=== PATIENT | male | born 1975 ===

== ENCOUNTER 2025-04-23 08:39 | Outpatient (AMB) | payer MEDICARE, MEDICAID, SELFPAY ==
--- NOTE | 2025-04-23 08:42 | A.OFFVIS_ITS ---
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 Patient referred by DELMER Armstrong at [facility]. Patient had a cervical spine x ray done 03/01. He was sent to physical therapy for neck, right shoulder and back pain. 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 Patient states he fell down the stairs at home multiple times. Patient reports that his right shoulder and lower back are in constant pain. Portfolio Consultant Required: Yes Portfolio Consultant Services: Portfolio Consultant Present Portfolio Consultant Name: Yocasta Chen [phone] Allergies No Known Allergies Allergy (Verified 04/23/25 09:17) HPI Comments Details: Referred from [facility]. Chronic neck pain, right shoulder pain, low back pain. Previously seen by Orthopedics and physiatry (Dr. Duke). Cervical spine x-ray 02/2025 showed decreased disc height C4-5 and C5-6. Shoulder x-ray 08/2019 showed postsurgical changes, soft tissue calcification lateral to right humeral head raising differential of posttraumatic calcification versus calcific tendinopathy. Lumbar x-ray 02/2025 showed decreased disc height L4-5 and L5-S1. Mild neural foraminal stenosis at multiple levels. Lumbar x-ray 09/2023 showed multilevel bony and disc degenerative changes with some interval progression since previous examination. MRI lumbar spine 10/2023 showed multilevel bony and disc degenerative changes without significant interval change since previous examination. He follows with Psychiatry for anxiety and depression, prescribed by them with gabapentin. History of hypertension hyperlipidemia. He was recently referred to PT by his PCP. 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 The lower back pain is the worst for him and which we will concentrate on for today. It is across the back and then goes both sides and says both sciatic nerves are hurting him. Goes down the right leg only. Numbness on right side only. He admits that injection in the past did not help more than a few months. He has started PT, had 2 sessions per week, for past 2 weeks. Has 2-3 sessions left. Not much help so far. [facility] Medical History (Updated 04/23/25 @ 09:21 by Orin Casey MD) Chronic low back pain Lumbar radiculitis Review of Systems Const All systems reviewed & are unremarkable except as noted in HPI and below Physical Exam Vital Signs: BMI result Body Mass Index 35.5 Constitutional: Patient appears to be in no acute distress, well nourished and well developed. Patient was appropriately conversant and oriented. Good historian. MSK: No specific abnormalities found on inspection of the spine and all extremities. No pain with palpation over the lumbar area. Lumbar ROM was full. Bilateral hip, knee and ankle ROM WNL. No ligamentous laxity or crepitance. No increased effusion. Straight-leg raising test positive right. FABERE test positive right. SI joints nontender. Strength is 5/5 in all muscle groups tested. No increased tone noted. Neurological: Neurologic examination of the upper and lower extremities was nonfocal with intact sensation, muscle stretch reflexes and without focal motor deficits . Joseph?s negative bilaterally. Babinski was down going bilaterally. Clonus was negative. Gait is antalgic without loss of balance. Results Reviewed Results Reviewed: I reviewed records from the following: [facility] Assessment & Plan Assessment & Plan (1) Lumbar radiculitis: Code(s): M54.16 - Radiculopathy, lumbar region Category: Medical (2) Chronic low back pain: Code(s): M54.50 - Low back pain, unspecified; G89.29 - Other chronic pain Category: Medical Qualifiers: Back pain laterality: right Sciatica presence: with sciatica Sciatica laterality: sciatica of right side Qualified Code(s): M54.41 - Lumbago with sciatica, right side; G89.29 - Other chronic pain Plan Chronic lower back pain, presenting as lumbar radiculitis. Possible right L5-S1 or L4-5 disc herniation. Patient had undergone adequate conservative management including PT without improvement of condition. It would be reasonable to obtain further imaging such as MRI. An MRI would help rule out any serious condition, guide treatment and assess prognosis for recovery. Specifically ruling out right L4-5 or L5-S1 disc herniation. Depending on results, we may refer him to Neurosurgery or further injections. Assessment and plan discussed with patient, and patient was agreeable. All questions were answered thoroughly. Follow up after MRI. Orin Casey MD, CARLEY Board Certified, [place] [employer] and Rehabilitation (ABPMR) Board Certified, [place] [employer] Electrodiagnostic [employer] (ABEM) Orders: Orders MR lumbar spine wo con Today G89.29 - Other chronic pain, M54.16 - Radiculopathy, lumbar region, M54.50 - Low back pain, unspecified Coding Level of Care Code New Pt Level 4 (09131) Diagnoses Lumbar radiculitis M54.16 Chronic right-sided low back pain with right-sided sciatica M54.41; G89.29 Back pain laterality: right Sciatica presence: with sciatica Sciatica laterality: sciatica of right side
[2025-04-23 08:44] VITALS: BMI 35.5
== END 2025-04-23 09:20 | disposition home or self-care (01) ==
LOC: HO.HOS 08:40
PROVIDERS: PCP Family Medicine; Visit Provider Physical Medicine & Rehabilitation
DX: M54.16 Radiculopathy, lumbar region (principal); M54.41 Lumbago with sciatica, right side; G89.29 Other chronic pain
CPT/HCPCS: 99204

== ENCOUNTER → 2025-04-23 08:39 | Outpatient (BNVA) | payer MEDICARE, MEDICAID, SELFPAY | PROVIDERS: PCP Family Medicine; Visit Provider Physical Medicine & Rehabilitation | DX: M54.16 Radiculopathy, lumbar region (principal); M54.41 Lumbago with sciatica, right side; G89.29 Other chronic pain | CPT/HCPCS: 99202 ==

== ENCOUNTER → 2025-05-06 10:50 | Outpatient (BNV) | payer MEDICARE, MEDICAID, SELFPAY | PROVIDERS: PCP Family Medicine; Visit Provider Radiology Diagnostic Radiology | DX: M51.26 Other intervertebral disc displacement, lumbar region (principal) | CPT/HCPCS: 72148 ==

== ENCOUNTER 2025-05-06 11:01 | Outpatient (REF) | payer MEDICARE, MEDICAID, SELFPAY ==
--- NOTE | ~2025-05-06 | MR_ITS ---
EXAM: MRI Lumbar Spine without Contrast. TECHNIQUE: Multiplanar multisequence MR imaging was performed through the lumbar spine without contrast. INDICATION: Low back pain, greater on the right, leg weakness, leg numbness, gets off balance , since 2014, history of childhood trauma PRIOR: None FINDINGS: 5 non-rib bearing lumbar segments are assumed for numbering purposes. If level specific intervention is planned, correlate with an x-ray to ensure concordant numbering. Marrow and end-plates: There are no marrow replacing lesions. Modic 2 change is present at posterior L4-5. Alignment: L4-5 demonstrates mild grade 1 retrolisthesis. Soft tissues: Paraspinal soft tissues and major vascular structures are unremarkable. Conus: The termination of conus medullaris is within normal limits at the level of L1-2. T12-L1: There is no disc bulge, herniation, spinal stenosis, or foraminal narrowing. L1-L2: There is mild loss of disc height and circumferential broad-based disc bulge resulting in spinal stenosis or foraminal narrowing. L2-L3: There is no disc bulge, herniation, spinal stenosis, or foraminal narrowing. L3-L4: There is minimal foraminal disc bulge without spinal stenosis or foraminal narrowing. Mild broad-based disc bulge and mild facet hypertrophy does not result in spinal stenosis. There is mild bilateral foraminal narrowing. L4-L5: There is mild loss of disc height and endplate osteophytes. There is moderate facet degeneration with hypertrophic changes and osteophytes, right greater than left. There is no spinal stenosis. There is minimal subarticular zone narrowing, more on the left. There is mild bilateral foraminal narrowing, greater on the left. Disc and osteophytes contact the L4 nerve roots in the far lateral zone, left greater than right. L5-S1: There is broad-based disc bulge and small broad central and foraminal extrusion. There is moderate facet degeneration, right greater than left. There is no spinal stenosis or subarticular zone narrowing. Mild to moderate foraminal narrowing is greater on the right disc and osteophytes contact left L5 nerve root in the far lateral zone. MR/MR lumbar spine wo con IMPRESSION: Multilevel degenerative disc disease and facet arthropathy is most pronounced at L4-5. Electronically signed by: Bryce Becker MD 05/06/2025 01:20 PM EDT
--- NOTE | ~2025-05-06 | XR_ITS ---
EXAMINATION: XR SCREENING FILM FOR MR HISTORY: PRE MRI X-RAY R/O EAR IMPLANT COMPARISON: There are no prior studies available for comparison. FINDINGS: Three views of the orbits bilateral mastoids were obtained. No radiopaque foreign body is identified. XR/XR pre mri screening IMPRESSION: No radiopaque foreign body is identified. Electronically signed by: Nate Manuel MD 05/06/2025 12:29 PM EDT
--- OUTSIDE RECORDS SUMMARY | 2025-05-06 11:54 | XMS_ITS ---
Author Name [facility] Organization Unknown Care Team Organization Name Specialty Phone Email Start Date End [facility], [facility] Kushal Montes De Oca MD Primary Care 07/30/2021 06/25/2024
== END 2025-05-06 11:02 | disposition home or self-care (01) ==
LOC: HO.MRI 11:01
PROVIDERS: PCP Family Medicine; Visit Provider Physical Medicine & Rehabilitation
DX: M54.16 Radiculopathy, lumbar region (principal); M54.50 Low back pain, unspecified; G89.29 Other chronic pain
CPT/HCPCS: 72148

== ENCOUNTER 2025-05-23 08:43 | Outpatient (AMB) | payer MEDICARE, MEDICAID, SELFPAY ==
--- NOTE | 2025-05-23 08:48 | MHC.OFFVIS ---
Intake Visit Reasons: OV- Neck and lumbar pain/ MRI review Intake Note: Lenard is a 49 year old male who presents today for a follow up for his neck and lumbar pain/ MRI review. Patient states he has the MRI disk with him today. Group Program Manager Required: Yes Group Program Manager Services: Group Program Manager Present Group Program Manager Name: Dennis [phone] Allergies No Known Allergies Allergy (Verified 05/23/25 09:21) Medication List - Last Reconciled 05/23/25 by Dary Tam RN Unobtainable HPI Comments Details: Referred from [facility]. Chronic neck pain, right shoulder pain, low back pain. Previously seen by Orthopedics and physiatry (Dr. Duke). Cervical spine x-ray 02/2025 showed decreased disc height C4-5 and C5-6. Shoulder x-ray 08/2019 showed postsurgical changes, soft tissue calcification lateral to right humeral head raising differential of posttraumatic calcification versus calcific tendinopathy. Lumbar x-ray 02/2025 showed decreased disc height L4-5 and L5-S1. Mild neural foraminal stenosis at multiple levels. Lumbar x-ray 09/2023 showed multilevel bony and disc degenerative changes with some interval progression since previous examination. MRI lumbar spine 10/2023 showed multilevel bony and disc degenerative changes without significant interval change since previous examination. He follows with Psychiatry for anxiety and depression, prescribed by them with gabapentin. History of hypertension hyperlipidemia. He was recently referred to PT by his PCP. 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 The lower back pain is the worst for him and which will focus on primarily. It is across the back and then goes both sides and says both sciatic nerves are hurting him. Goes down the right leg only. Numbness on right side only. He admits that injection in the past did not help more than a few months. He has started PT, had 2 sessions per week, for past 2 weeks. Has 2-3 sessions left. Not much help so far. We are here today 05/23/25 to review MRI results. Images showed disc bulge broad based L5-S1, more to right side. No significant spinal stenosis. He maintains that he does not remember much details about previous injections, maybe it was back in 2014. He says that pain usually goes more to the right leg. He also reports right shoulder pain. Past surgery was done at [facility] and in [place]. [facility] Medical History (Updated 05/23/25 @ 09:34 by Orin Casey MD) Chronic low back pain Lumbar radiculitis Physical Exam Constitutional: Patient appears to be in no acute distress, well nourished and well developed. Patient was appropriately conversant and oriented. Good historian. MSK: No specific abnormalities found on inspection of the spine and all extremities. No pain with palpation over the lumbar area. Lumbar ROM was full. Bilateral hip, knee and ankle ROM WNL. No ligamentous laxity or crepitance. No increased effusion. Straight-leg raising test positive right. FABERE test positive right. SI joints nontender. Strength is 5/5 in all muscle groups tested. No increased tone noted. Neurological: Neurologic examination of the upper and lower extremities was nonfocal with intact sensation, muscle stretch reflexes and without focal motor deficits . Joseph?s negative bilaterally. Babinski was down going bilaterally. Clonus was negative. Gait is antalgic without loss of balance. Results Reviewed Results Reviewed: Ordering Physician: Orin Guerra Date of Service: 05/06/25 Procedure(s): MR lumbar spine wo con Accession Number(s): [id number] cc: Eleanor Barrera MD; Orin Guerra~ EXAM: MRI Lumbar Spine without Contrast. TECHNIQUE: Multiplanar multisequence MR imaging was performed through the lumbar spine without contrast. INDICATION: Low back pain, greater on the right, leg weakness, leg numbness, gets off balance , since 2014, history of childhood trauma PRIOR: None FINDINGS: 5 non-rib bearing lumbar segments are assumed for numbering purposes. If level specific intervention is planned, correlate with an x-ray to ensure concordant numbering. Marrow and end-plates: There are no marrow replacing lesions. Modic 2 change is present at posterior L4-5. Alignment: L4-5 demonstrates mild grade 1 retrolisthesis. Soft tissues: Paraspinal soft tissues and major vascular structures are unremarkable. Conus: The termination of conus medullaris is within normal limits at the level of L1-2. T12-L1: There is no disc bulge, herniation, spinal stenosis, or foraminal narrowing. L1-L2: There is mild loss of disc height and circumferential broad-based disc bulge resulting in spinal stenosis or foraminal narrowing. L2-L3: There is no disc bulge, herniation, spinal stenosis, or foraminal narrowing. L3-L4: There is minimal foraminal disc bulge without spinal stenosis or foraminal narrowing. Mild broad-based disc bulge and mild facet hypertrophy does not result in spinal stenosis. There is mild bilateral foraminal narrowing. L4-L5: There is mild loss of disc height and endplate osteophytes. There is moderate facet degeneration with hypertrophic changes and osteophytes, right greater than left. There is no spinal stenosis. There is minimal subarticular zone narrowing, more on the left. There is mild bilateral foraminal narrowing, greater on the left. Disc and osteophytes contact the L4 nerve roots in the far lateral zone, left greater than right. L5-S1: There is broad-based disc bulge and small broad central and foraminal extrusion. There is moderate facet degeneration, right greater than left. There is no spinal stenosis or subarticular zone narrowing. Mild to moderate foraminal narrowing is greater on the right disc and osteophytes contact left L5 nerve root in the far lateral zone. MR/MR lumbar spine wo con IMPRESSION: Multilevel degenerative disc disease and facet arthropathy is most pronounced at L4-5. Electronically signed by: Bryce Becker MD 05/06/2025 01:20 PM EDT RP Assessment & Plan Assessment & Plan (1) Lumbar radiculitis: Code(s): M54.16 - Radiculopathy, lumbar region Category: Medical (2) Lumbar disc herniation: Code(s): M51.26 - Other intervertebral disc displacement, lumbar region Category: Medical Plan Chronic lower back pain, right-sided. MRI reviewed. It does show broad-based disc bulge L5-S1, more right-sided. This could explain his pain. Discussed epidural injection. He has not had any lumbar injections for the last 10 years at least. Patient eager to proceed. I will refer him to pain management for L5-S1 interlaminar epidural injection under fluoroscopy. As for chronic right shoulder pain, status post 2 previous surgeries, we will refer him to Orthopedics. Assessment and plan discussed with patient, and patient was agreeable. All questions were answered thoroughly. Orin Casey MD, CARLEY Board Certified, [place] [employer] Medicine and Rehabilitation (ABPMR) Board Certified, [place] [employer] Electrodiagnostic Medicine (ABEM) Orders: Referrals Pain Management Referral M51.26 - Other intervertebral disc displacement, lumbar region, M54.16 - Radiculopathy, lumbar region Coding Level of Care Code Est Pt Level 4 (58728) Diagnoses Lumbar radiculitis M54.16 Lumbar disc herniation M51.26
--- OUTSIDE RECORDS SUMMARY | 2025-05-23 08:54 | XMS_ITS | Clinical Summary ---
Author Organization [address] [facility] Address [address] [place] [address] Phone Care Team Providers Care Mixer And Scaler Name Role Phone Eleanor Barrera MD Primary Care Pr ovider Allergies No known active allergies Medications ammonium lactate (LAC-HYDRIN) 12 % lotion Apply to soles of feet daily. At night wear socks to bed 02/07/20 24 Active cholecalciferol (VITAMIN D-3) 25 mcg (1,000 unit) capsule Take by mouth. Active cloNIDine (CATAPRES) 0.1 mg tablet Take 0.1 mg by mouth 2 times daily. Active escitalopram (LEXAPRO) 10 mg tablet Take 10 mg by mouth daily. Active fluticasone propionate (FLONASE) 50 mcg/actuation nasal spray 2 Sprays by Each Nare route daily. 01/28/20 23 Active loratadine (CLARITIN) 10 mg tablet Take 1 Tablet by mouth daily. 01/28/20 23 Active meloxicam (MOBIC) 15 mg tablet Take 1 Tablet by mouth daily. 08/01/20 23 Active ketoconazole (NIZORAL) 2 % cream Apply topically 1 (one) time each day. 60 g 2 11/15/19 25 Active amLODIPine (NORVASC) 5 mg tablet Take 1 tablet (5 mg total) by mouth 1 (one) time each day. 90 tablet 1 02/08/20 25 Active atorvastatin (LIPITOR) 20 mg tablet Take 1 tablet (20 mg total) by mouth at bedtime. 90 tablet 1 02/08/20 25 Active metoprolol succinate (TOPROL-XL) 50 mg 24 hr tablet Take 1 tablet (50 mg total) by mouth 1 (one) time each day. 90 tablet 1 02/08/20 25 Active aspirin 81 mg EC tablet Take 1 tablet (81 mg total) by mouth 1 (one) time each day. 90 tablet 1 03/19/20 25 Active pregabalin (LYRICA) 75 mg capsuleIndicatio ns:Osteoarthriti s of cervical spine with myelopathy,Osteo arthritis of lumbar spine with myelopathy,Lumba r radiculopathy Take 1 capsule (75 mg total) by mouth 2 (two) times a day. Max Daily Amount: 150 mg 180 each 05/17/20 25 025 Active cyclobenzaprine (FLEXERIL) 10 mg tabletIndication s:Osteoarthritis of cervical spine with myelopathy,Osteo arthritis of lumbar spine with myelopathy,Lumba r radiculopathy Take 1 tablet (10 mg total) by mouth at bedtime as needed for muscle spasms. 30 tablet 1 05/17/20 25 025 Active ketoconazole (NIZORAL) 2 % cream Apply topically 1 (one) time each day. 100 g 2 09/12/20 24 025 Discontinued(D uplicate order) gabapentin (NEURONTIN) 300 mg capsule Take 1 capsule (300 mg total) by mouth 1 (one) time each day in the evening. 90 capsule 1 02/08/20 25 025 Discontinued Active Problems Problem Noted Date Diagnosed Date Neuroforaminal stenosis of lumbar spine 05/17/20 25 Prediabetes 05/17/2025 Assessment & Plan (05/17/2025 11:43 AM EDT): Due for A1c which is ordered Orders: Hemoglobin A1c; Future Microalbumin creatinine urine ratio; Future Lumbar radiculopathy 05/17/2025 Assessment & Plan (05/17/2025 11:43 AM EDT): As above Orders: pregabalin (LYRICA) 75 mg capsule; Take 1 capsule (75 mg total) by mouth 2 (two) times a day. Max Daily Amount: 150 mg cyclobenzaprine (FLEXERIL) 10 mg tablet; Take 1 tablet (10 mg total) by mouth at bedtime as needed for muscle spasms. Osteoarthritis of lumbar spine with myelopathy 0 02/07/2025 Assessment & Plan (05/17/2025 11:43 AM EDT): Start pregabalin 75mg BID and flexeril nightly Continue meloxicam 15mg daily(states he has medication and his psychiatrist prescribes this) Continue PT He has established care with [facility] pain management and reportedly completed an MRI on May 06 and has a follow-up on May 23. He will continue care with [facility] possibly for interventional management He is requesting a copy of his MRI L spine done in 2022 and a disc to take to [facility] pain management. Copy of results provided. Advised to go to radiology for the disc Orders: pregabalin (LYRICA) 75 mg capsule; Take 1 capsule (75 mg total) by mouth 2 (two) times a day. Max Daily Amount: 150 mg cyclobenzaprine (FLEXERIL) 10 mg tablet; Take 1 tablet (10 mg total) by mouth at bedtime as needed for muscle spasms. 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 I asked him to please call us in 2 weeks if he does not hear from us regarding scheduling this test. Starting metoprolol as above to slow heart rate for the test. Assessment & Plan (05/17/2025 11:43 AM EDT): He last saw cardiology Dr. Cardenas on 12/09/2023. Notes reviewed. At that time CT coronary arteries was ordered based on interventional cardiology recommendations from his cardiac cath in October 2022 . 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 Will order this and send results to Dr. Cardenas once done Orders: CT Angio Coronary Fractional Flow Anlys/Model Gen (FFRCT); Future Atypical chest pain 10/07/2022 Overview (08/07/2024): - Complained of vaguely described chest pain symptoms in the center of his chest-without traveling without any clear rhyme or reason coming and going, mostly when he is at rest however interestingly, the chest pain occurred during both of his stress tests - Initially had an ETT in August 2022 which was nondiagnostic given his inability to achieve max predicted heart rate and keep up with the treadmill - Subsequently had a pharmacologic nuclear stress test which showed large, moderately severe ischemia of the mid to distal LAD territory with overall normal ejection fraction but hypokinesis of the anteroapical wall, moderately dilated RV with mildly reduced systolic function -Dr. 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 Interventional cardiology recommended a CT angiography of the coronaries. While I still think that the predominance of his chest pain symptoms are musculoskeletal based on exam and history, I would want to identify any major or high risk anatomical abnormalities. It does not seem this is the case but regardless, we will proceed with a CT angiography of the chest. The 1 thing that seems to be a hindrance will be his high normal heart rate. I am starting him on a beta-margarita on the off chance that it may be treating microvascular disease potentially and may help him with his chest pain but also to slow his heart rate for impending CT angiography. I am starting him on 25 mg daily with plans to uptitrate to 50 mg daily in 2 weeks if tolerated preceding the CT angiography. To offset, I am decreasing his amlodipine to 5 mg so that we do not lower his pressure too much. I will review his CT angiography and if there are no major or high risk findings, we will plan to have him follow-up on an as-needed basis only. Continue treatment of musculoskeletal chest pain. Dyslipidemia 10/07/2022 Overview (08/07/2024): Last Assessment & Plan: Continue atorvastatin 20 mg at bedtime. Patient's lipids were not terribly elevated but his high-sensitivity CRP was quite high and he is a prediabetic. I think we can justify the use of lipid-lowering therapy at this time for primary prevention. Assessment & Plan (05/17/2025 11:43 AM EDT): Continue atorvastatin 20 mg nightly Anxiety and depression 09/04/2018 Assessment & Plan (05/17/2025 11:43 AM EDT): Continue follow-up with psychiatrist. Continue clonidine and Lexapro Osteoarthritis of cervical spine with myelopathy 09/04/2018 Assessment & Plan (05/17/2025 11:43 AM EDT): STOP gabapentin 300mg Start pregabalin 75mg BID and flexeril nightly Continue meloxicam 15mg daily(states he has medication and his psychiatrist prescribes this) Continue PT Orders: pregabalin (LYRICA) 75 mg capsule; Take 1 capsule (75 mg total) by mouth 2 (two) times a day. Max Daily Amount: 150 mg cyclobenzaprine (FLEXERIL) 10 mg tablet; Take 1 tablet (10 mg total) by mouth at bedtime as needed for muscle spasms. Chronic shoulder pain 09/04/2018 Hearing loss 09/04/2018 Obesity 09/04/2018 Panic attacks 09/04/2018 Primary hypertension 09/04/2018 Overview (08/07/2024): Last Assessment & Plan: Well-controlled but see medication changes above. Assessment & Plan (05/17/2025 11:43 AM EDT): Well-controlled. Continue amlodipine 5 mg daily and metoprolol 50 mg daily. Also continue aspirin 81 mg Resolved Problems Problem Noted Date Diagnosed Date Resolved Date Depression 02/07/2025 05/17/2025 Encounters Date Type Department Care Team Description 05/21/2025 10:30 AM EDT Treatment [place] [address] [place] [phone] John Arredondo, MEDICAL CERTIFICATION SPECIALIST Chronic right-sided low back pain with right-sided sciatica (Primary Dx) 05/17/2025 9:45 AM EDT Office Visit [address] [phone] Eleanor Barrera MD Osteoarthritis of cervical spine with myelopathy (Primary Dx); Osteoarthritis of lumbar spine with myelopathy; Lumbar radiculopathy; Anxiety and depression; Dyslipidemia; Primary hypertension; Prediabetes; Need for hepatitis C screening test; Colon cancer screening; Need for vaccination against Streptococcus pneumoniae; Anomalous coronary artery origin; Abnormal findings on diagnostic imaging of heart and coronary circulation 04/30/2025 10:00 AM EDT Treatment [address] [phone] Nate Sno, PT Chronic right-sided low back pain with right-sided sciatica (Primary Dx) 04/25/2025 11:00 AM EDT Treatment [address] [phone] John Arredondo, MEDICAL CERTIFICATION SPECIALIST Chronic right-sided low back pain with right-sided sciatica (Primary Dx) 04/23/2025 12:30 PM EDT Treatment [address] [phone] Tomasz Castillo, JOSE L Chronic right-sided low back pain with right-sided sciatica (Primary Dx) 04/18/2025 10:30 AM EDT Office Visit Orthopedic Surgery [place] [phone] [phone] Cornelius Gonzales DPM Controlled type 2 diabetes with neuropathy (CMS/HCC V24, CMS/HCC V28) (Primary Dx); Arthritis of both feet; Pain in toes of both feet; Tinea pedis of both feet 04/15/2025 12:30 PM EDT Treatment [address] [phone] Nate Son, PT Chronic right-sided low back pain with right-sided sciatica (Primary Dx) 04/09/2025 8:30 AM EDT Treatment [address] [phone] Elen Alfredo, MEDICAL CERTIFICATION SPECIALIST Chronic right-sided low back pain with right-sided sciatica (Primary Dx) 04/04/2025 1:30 PM EDT Evaluation [address] [phone] Nate Son, PT Chronic neck pain; Chronic right shoulder pain; Chronic right-sided low back pain with right-sided sciatica from Last 3 Months Immunizations Name Administration Dates Next Due COVID-19 (Moderna/Spikevax) 12yo and older 03/19 Influenza Quadravalent, MDCK , 0.5ml, preservative free (Flucelvax) 6mo and older 08/01/2023,09/26/2019 Influenza Quadravalent, MDCK , 0.5ml, with preservative (Flucelvax) 6mo and older 09/04/2018 Influenza trivalent, with pr eservative (Fluzone; Afluria) 6mo and older 10/20/2022,10/21/2020,09/27/2017 Pneumococcal conjugate 20 va lent (Prevnar 20, PCV 20) 2mo and older 05/17/2025 Td Tetanus diptheria (Tdvax) 7yo and older 09/26 Tdap Tetanus diptheria acell ular pertussis (Boostrix; Adacel) 7yo and older 04/21/2017 Surgical History Surgery Date Site/Laterality Comments SHOULDER SURGERY 2013 Right PROCEDURE: HISTORICAL SHOULDER SURGERY; COMMENT: rotator cuff x2, second in [place] Medical History Medical History Date Comments HTN (hypertension) 09/04/2018 DX:HTN (hyper tension) Anxiety 09/04/2018 DX:Anxiety Panic attacks 09/04/2018 DX:Panic attacks Chronic neck pain 09/04/2018 DX:Chronic nec k pain Chronic shoulder pain 09/04/2018 DX:Chronic shoulder pain Hearing loss 09/04/2018 DX:Hearing loss Dental infection DX:Dental infec tion Sepsis (CMS/HCC V24, CMS/HCC V28) DX:Sepsis ([facility]) Class 2 obesity DX:Class 2 obesi ty Right shoulder pain DX:Right azael ulder pain Family History Medical History Relation Name Comments Diabetes Brother 1 Hypertension Brother 1 Seizures Brother 2 Mental illness Brother 3 No Known Problems Daughter Coronary artery disease Father Pt d oesn't know when he was diagnosed Hypertension Father Diabetes Mother Hypertension Mother Other: lupus Sister No Known Problems Son 1 No Known Problems Son 2 Relation Name Status Comments Brother 1 Alive Brother 2 Brother 3 Alive Daughter Alive Father Mother Alive Sister Alive Son 1 Alive Son 2 Alive Social History Tobacco Use Types Packs/Day Years Used Date Smoking Tobacco: Never Smokeless Tobacco: Never Tobacco Cessation:Counseling Given: Not Answered Alcohol Use Standard Drinks/Week Comments Yes 0 (1 standard drink = 0.6 oz pur e alcohol) Sex and Gender Information Value Date Recorded Sex Assigned at Not on file Legal Sex Male 10:12 AM EST Gender Identity Not on file Sexual Orientation Not on file Obstetrics History Last Filed Vital Signs Vital Sign Reading Time Taken Comments Blood Pressure 128/79 05/17/2025 9:41 AM EDT Pulse 76 05/17/2025 9:41 AM EDT Temperature 36.4 C (97.5 F) 05/17/2025 9:41 AM EDT Respiratory Rate 16 05/17/2025 9:41 AM EDT Oxygen Saturation 99% 05/17/2025 9:41 AM EDT Inhaled Oxygen Concentration - - Weight 102 kg (225 lb) 05/17/2025 9:41 AM EDT Height 167.6 cm (5' 6 ) 05/17/2025 9:41 AM EDT Body Mass Index 36.32 05/17/2025 9:41 AM EDT Plan of Treatment Upcoming Encounters Date Type Department Care Team (Late st Contact Info) Description 05/23/2025 10:30 AM EDT Treatment [facility] [address] [phone] John Arredondo, JOSE L 05/27/2025 11:00 AM EDT Treatment [facility] [address] [phone] Nate Son, PT 05/29/2025 12:30 PM EDT Treatment [facility] 175 [facility] [address] [place] [phone] Nate Son, PT 06/20/2025 10:15 AM EDT Office Visit Orthopedic Surgery - [place] [address] [facility] [address] [place] [phone] Cornelius Gonzales, DPM [address] [phone] 08/15/2025 10:00 AM EDT Office Visit Adult Medicine [facility] [address] [place] [phone] Denice Anna PA [address] [place] [address] Health Maintenance Due Date Last Done Comments Hepatitis B Vaccines (1 of 3 - 19+ 3-dose series) 1994 Colorectal Cancer Screening: Colonoscopy 10/16/2022 HIV Screening 10/16/2022 Medicare Annual Wellness Visit 10/16/2022 Social Influencers of Health Screening 10/16/2022 COVID-19 Vaccine ( season) 2024 03/19/2023, 01/16/2022, 12/26/2021 Depression Screening 11/07/2024 Influenza Vaccine (#1) 2025 , 10/20/2022, 10/21/2020, Additional history exists Diabetes: Blood Sugar Control Test (HGBA1C) 11/17/2025 05/17/2025, 06/07/2024, 06/07/2024 Diabetes: Annual GFR (Glomerular Filtration Rate) 02/07/2026 02/07/2025, 06/07/2024, 06/07/2024 Hypertension/CHF/CAD Annual BMP Blood Test 02/07/2026 02/07/2025, 06/07/2024, 06/07/2024 Diabetes: Annual Retina Eye Exam 03/07/2026 03/07/2025 Diabetes: Annual Foot Exam 04/18/2026 04/18/2025 Diabetes: Annual Urine Albumin-Creatinine Ratio (uACR) 05/17/2026 05/17/2025 DTaP,Tdap,and Td Vaccines (3 - Td or Tdap) 09/26/2029 09/26/2019, 04/21/2017 Cholesterol Screening (Lipid Panel) 02/07/2030 02/07/2025, 10/04/2023 Hepatitis C Screening Completed 05/17/2025 Pneumococcal Vaccine: Pediatrics (0 to 5 Years) and At-Risk Patients (6 to 49 Years) Completed 05/17/2025 HIB Vaccines Aged Out No longer eligi ble based on patient's age to complete this topic HPV Vaccines Aged Out No longer eligi ble based on patient's age to complete this topic Hepatitis A Vaccines Aged Out No long er eligible based on patient's age to complete this topic IPV Vaccines Aged Out No longer eligi ble based on patient's age to complete this topic MMR Vaccines Aged Out No longer eligi ble based on patient's age to complete this topic Meningococcal ACWY Vaccine Aged Out N o longer eligible based on patient's age to complete this topic Meningococcal B Vaccine Aged Out No l onger eligible based on patient's age to complete this topic RSV Immunization Patients Under 20 months Aged Out No longer eligible based on patient's age to complete this topic Varicella Vaccines Aged Out No longer eligible based on patient's age to complete this topic Goals Goal Patient Goal Type Associated Problems Recent Progress Patient-Stated? Author PT LTGs General No Nate Son, PT Note: Pt will increase lumbar AROM to WNL Pt will report Lumbar ERP no greater than 3/10 with lumbar AROM testing Pt will be independent with Lumbar HEP Pt will complete cervical evaluation Procedures Procedure Name Priority Date/Time Associated Diagnosis Comments MICROALBUMIN CREATININE URINE RATIO Routine 05/17/2025 12:19 PM EDT Prediabetes HEPATITIS C ANTIBODY Routine 05/17/2025 11:06 AM EDT Need for hepatitis C screening test HEMOGLOBIN A1C Routine 05/17/2025 11:06 AM EDT Prediabetes COMPREHENSIVE METABOLIC PANEL Routine 02/07/2025 2:20 PM EDT Primary hypertension LIPID PANEL WITH REFLEX TO DIRECT LDL Routine 02/07/2025 2:20 PM EDT Primary hypertension Dyslipidemia from Last 3 Months or Most Recently Relevant to Health Maintenance Results * Microalbumin creatinine urine ratio (05/17/2025 12:19 PM EDT) Creatinine, Urine 137.0 mg/dL LAB CHEMISTRY METHOD 05/17/2025 4:26 PM EDT [facility] Microalb, Ur 11.9 0.0 - 29.0 mg/L LAB CHEMISTRY METHOD 05/17/2025 4:26 PM EDT [facility] Microalb/Creat Ratio 9 <30 mg/g creat LAB CHEMISTRY METHOD 05/17/2025 4:26 PM EDT [facility] Urine Urine specimen obtained by clean catch procedure / Unknown Non-blood Collection / Unknown 05/17/2025 12:19 PM EDT 05/17/2025 12:19 PM EDT Eleanor Barrera MD LAB URINE ORDERA BLES Final Result Performing Organization Address [facility] Co de Phone Number [facility] [address] [place] [address], * Hepatitis C antibody (05/17/2025 11:06 AM EDT) Hepatitis C Antibody Negative Negative LAB CHEMISTRY METHOD 05/17/2025 3:14 PM EDT [facility] Blood Venous blood specimen / Unknown Venipuncture / Unknown 05/17/2025 11:06 AM EDT 05/17/2025 11:06 AM EDT us Eleanor Barrera MD LAB BLOOD ORDERA BLES Final Result [facility] [address] [place] [address], [place] [phone] * Hemoglobin A1c (05/17/2025 11:06 AM EDT) [facility] Hemoglobin A1C 5.6 <6.5 % LAB CHEMISTRY METHOD 05/17/2025 9:25 PM EDT [facility] Mean Bld Glu Estim. 114 mg/dL LAB CHEMISTRY METHOD 05/17/2025 9:25 PM EDT [facility] Blood Venous blood specimen / Unknown Venipuncture / Unknown 05/17/2025 11:06 AM EDT 05/17/2025 11:06 AM EDT Eleanor Barrera MD LAB BLOOD ORDERA BLES Final Result Performing Organization Address City/[facility]/ZIP Co de Phone Number [facility] [address] [place] [address], [place] [phone] * (ABNORMAL) Lipid panel with reflex to direct LDL (02/07/2025 2:20 PM EDT) [facility] Cholesterol 177 0 - 200 mg/dL LAB CHEMISTRY METHOD 02/07/2025 5:03 PM EDT [facility] Triglycerides 181(H) 0 - 150 mg/dL LAB CHEMISTRY METHOD 02/07/2025 5:03 PM EDT [facility] HDL 52 >=40 mg/dL LAB CHEMISTRY METHOD 02/07/2025 5:03 PM EDT [facility] LDL Calculated 89 0 - 100 mg/dL LAB CHEMISTRY METHOD 02/07/2025 5:03 PM EDT [facility] VLDL Cholesterol Dusty 36.2 mg/dL LAB CHEMISTRY METHOD 02/07/2025 5:03 PM EDT [facility] Non HDL Chol. (LDL+VLDL) 125 <145 mg/dL LAB CHEMISTRY METHOD 02/07/2025 5:[address] [facility] Chol/HDL Ratio 3.4 0.0 - 4.4 LAB CHEMISTRY METHOD 02/07/2025 5:[address] [facility] Blood Venous blood specimen / Unknown Venipuncture / Unknown 02/07/2025 2:20 PM EDT 02/07/2025 2:20 PM EDT us Denice DOWELL LAB BLOOD ORDERABLES Final Re sult [facility] [address] [place] [address], * Comprehensive metabolic panel (02/07/2025 2:20 PM EDT) Sodium 140 133 - 145 mmol/L LAB CHEMISTRY METHOD 02/07/2025 5:[address] [facility] Potassium 4.0 3.5 - 5.5 mmol/L LAB CHEMISTRY METHOD 02/07/2025 5:[address] [facility] Chloride 107 96 - 110 mmol/L LAB CHEMISTRY METHOD 02/07/2025 5:[address] [facility] CO2 27 21 - 32 mmol/L LAB CHEMISTRY METHOD 02/07/2025 5:[address] [facility] Anion Gap 6 3 - 11 LAB CHEMISTRY METHOD 02/07/2025 5:[address] [facility] Glucose 86 70 - 100 mg/dL LAB CHEMISTRY METHOD 02/07/2025 5:[address] [facility] BUN 17 5 - 25 mg/dL LAB CHEMISTRY METHOD 02/07/2025 5:[address] [facility] Creatinine 1.04 0.70 - 1.30 mg/dL LAB CHEMISTRY METHOD 02/07/2025 5:[address] [facility] eGFR 88 >=60 mL/min/1. 73m2 LAB CHEMISTRY METHOD 02/07/2025 5:03 PM T [facility] Comment:Calculation based on the Chronic Kidney Disease Epidemiology Collaboration (CKD-EPI) equation refit without adjustment for race. BUN/Creatinine Ratio 16.3 LAB CHEMISTRY METHOD 02/07/2025 5:[address] [facility] Calcium 9.1 8.5 - 10.5 mg/dL LAB CHEMISTRY METHOD 02/07/2025 5:[address] [facility] AST (SGOT) 17 10 - 42 unit/L LAB CHEMISTRY METHOD 02/07/2025 5:[address] [facility] ALT (SGPT) 26 10 - 60 unit/L LAB CHEMISTRY METHOD 02/07/2025 5:[address] [facility] Alkaline Phosphatase 83 42 - 121 unit/L LAB CHEMISTRY METHOD 02/07/2025 5:[address] [facility] Total Protein 6.7 6.0 - 8.0 g/dL LAB CHEMISTRY METHOD 02/07/2025 5:[address] [facility] Albumin 3.7 3.2 - 5.0 g/dL LAB CHEMISTRY METHOD 02/07/2025 5:[address] [facility] Total Bilirubin 0.4 0.0 - 1.4 mg/dL LAB CHEMISTRY METHOD 02/07/2025 5:[address] [facility] Blood Venous blood specimen / Unknown Venipuncture / Unknown 02/07/2025 2:20 PM EDT 02/07/2025 2:20 PM EDT us Denice DOWELL LAB BLOOD ORDERABLES Final Re sult [facility] [address] [place] [address], from Last 3 Months or Most Recently Relevant to Health Maintenance Insurance [employer] MED[employer]ARE [employer]VANTAGE MEDICAID - [place] Care Teams Mixer And Scaler Relationship Specialty Start Date End Date Eleanor Barrera MD [address] [place] [id number] PCP - General 10/26/22
--- OUTSIDE RECORDS SUMMARY | 2025-05-23 08:54 | XMS_ITS | Clinical Summary ---
Author Organization [facility] Address [address] [place] [address] Care Team Providers Care Stitcher Standard Machine Name Role Phone Uzma Lewis Primary Care Provider Allergies No known active allergies Medications Medication Sig Dispensed Refills Start Date End Date Status cyclobenzaprine (FLEXERIL) 10 MG tablet Take 10 mg by mouth. 0 09/04/2019 Active Active Problems No known active problems Family History Medical History Relation Name Comments Diabetes Brother Hypertension Brother Seizures Brother Diabetes Father Hypertension Father Diabetes Mother Hypertension Mother Lupus Sister Relation Name Status Comments Brother mental disorder Father high cholestero l Mother Alive Sister Alive Social History Tobacco Use Types Packs/Day Years Used Date Smoking Tobacco: Never Smokeless Tobacco: Never Alcohol Use Standard Drinks/Week Comments Yes 0 (1 standard drink = 0.6 oz pur e alcohol) Sex and Gender Information Value Date Recorded Sex Assigned at Not on file Gender Identity Not on file Sexual Orientation Not on file Last Filed Vital Signs Vital Sign Reading Time Taken Comments Blood Pressure - - Pulse - - Temperature - - Respiratory Rate - - Oxygen Saturation - - Inhaled Oxygen Concentration - - Weight 108.9 kg (240 lb) 10/22/2019 2:19 PM EST Height 167.6 cm (5' 6 ) 10/22/2019 2:19 PM EST Body Mass Index 38.74 10/22/2019 2:19 PM EST Plan of Treatment Health Maintenance Due Date Last Done Comments Hepatitis B Vaccines (1 of 3 - 3-dose series) 1975 Hepatitis C Screening 1975 COVID-19 Vaccine (#1) 01/06/1976 Depression Screening 1987 BMI Counseling 1993 Preventative Health Evaluation 1993 DTap / Tdap / Td (1 - Tdap) 1994 Colon Cancer Screening (Colonoscopy) 2020 Influenza Vaccine (#1) 2025 9, 09/04/2018 Pneumococcal Vaccine Aged Out No long er eligible based on patient's age to complete this topic RSV Ped < 20 months Aged Out No longe r eligible based on patient's age to complete this topic Care Teams Stitcher Standard Machine Relationship Specialty Start Date End Date Uzma Lewis Anali [facility] [place] [address] PCP - General Internal Medicine 09/06/19
--- OUTSIDE RECORDS SUMMARY | 2025-05-23 08:54 | XMS_ITS | Clinical Summary ---
Author Organization [facility] Address [address] [place] [address] Care Team Providers Care Bilingual Call Center Representative Name Role Phone León Borjas Primary Care Provider [phone] Source Comments PLEASE NOTE, if this patient is a minor, it may be UNLAWFUL to discuss sensitive information that is contained in these records (such as FAMILY PLANNING, MENTAL HEALTH or SUBSTANCE ABUSE) with the minor patient's parent or other person without the patient's specific authorization.[facility] Immunizations Immunization Administration Dates Next Due Pfizer-BioNTech COVID-19 Vac cine Bivalent, (HERNANDEZ PFIZER-BIONTECH COVID-19 VACCINE BIVALENT, (HERNANDEZ CAP 03/19/2023 Social History Tobacco Use Types Packs/Day Years Used Date Smoking Tobacco: Never Assessed Social Connections Answer Date Recorded Social Connections and Isolation 0 06/30/2019 Financial Resource Strain Answer Date R ecorded Financial Resource Strain 0 2018 Stress Answer Date Recorded Stress 0 06/30/2019 Physical Activity Answer Date Recorded Physical Activity 0 06/30/2019 Food Insecurity Answer Date Recorded Food 0 06/30/2019 Transportation Needs Answer Date Record ed Transportation 0 06/30/2019 Housing Stability Answer Date Recorded Housing 0 06/30/2019 Safety and Environment Answer Date Gary rded Safety 0 06/30/2019 Utilities Answer Date Recorded Utilities 0 06/30/2019 Employment Answer Date Recorded Employment 0 06/30/2019 Sex and Gender Information Value Date Recorded Sex Assigned at Not on file Legal Sex Male 11:36 AM PDT Gender Identity Not on file Sexual Orientation Not on file Plan of Treatment Health Maintenance Due Date Last Done Comments Anxiety Screening 1975 Diabetes Screening 1975 Hepatitis C Screening 1975 Lipid Screening 1975 Tobacco Screening 1975 HIV Screening 1990 Hypertension Screening (#1) 1993 Imm-Hepatitis B (1 of 3 - 19 + 3-dose series) 1994 CT Colonography 2020 Colonoscopy 2020 Colorectal Cancer Screening 2020 FIT/gFOBT 2020 Fecal DNA 2020 Flexible Sigmoidoscopy 2020 [id number] (2023- season) 2024 03/19/2023, 01/16/2022, 12/26/2021 Alcohol and Drug Screen 11/07/2024 Depression Annual Screen 11/07/2024 Imm-Influenza (#1) 2025 10/20/2022, 1 12/22/2019, 09/26/2019, Additional history exists Imm-DTaP/Tdap/Td (3 - Td or Tdap) 09/26/2029 019, 04/21/2017 Insurance AETNA [facility] Care Teams Bilingual Call Center Representative Relationship Specialty Start Date End Date León Borjas PA [address] [place] [address] PCP - General Internal Medicine 06/23/18
--- OUTSIDE RECORDS SUMMARY | 2025-05-23 08:54 | XMS_ITS ---
Author Name [facility] Organization Unknown Care Team Organization Name Specialty Phone Email Start Date End [facility] Neurology, [facility] Kushal Montes De Oca MD Primary Care 07/30/2021 06/25/2024
== END 2025-05-23 09:44 | disposition home or self-care (01) ==
LOC: HO.HOS 08:44
PROVIDERS: PCP Family Medicine; Visit Provider Physical Medicine & Rehabilitation
DX: M54.16 Radiculopathy, lumbar region (principal); M51.26 Other intervertebral disc displacement, lumbar region
CPT/HCPCS: 99214

== ENCOUNTER → 2025-05-23 08:43 | Outpatient (BNVA) | payer MEDICARE, MEDICAID, SELFPAY | PROVIDERS: PCP Family Medicine; Visit Provider Physical Medicine & Rehabilitation | DX: M54.16 Radiculopathy, lumbar region (principal); M51.26 Other intervertebral disc displacement, lumbar region | CPT/HCPCS: 99212 ==

== ENCOUNTER 2025-06-28 10:17 | Outpatient (REF) | payer MEDICARE, MEDICAID, SELFPAY ==
--- NOTE | ~2025-06-28 | XR_ITS ---
EXAMINATION: XR SHOULDER, RIGHT CLINICAL INFORMATION: M25.519 - Pain in unspecified shoulder COMPARISON: None available. TECHNIQUE: AP external rotation, Grashey, scapular Y, and axillary views of the right shoulder. FINDINGS: Sclerosis along the articular surface of the acromioclavicular joint and the glenohumeral joint. Joint space narrowing involving the acromiohumeral joint and the inferior glenohumeral joint. Radiopaque/metallic anchors in the greater tuberosity of the right humerus. No gross malalignment. No lytic or blastic lesions. XR/XR shoulder RT min 2V IMPRESSION: Degenerative changes related to chronic rotator cuff tendon tear. Status post repair Electronically signed by: Robert Zabala MD 06/28/2025 01:48 PM EDT
--- OUTSIDE RECORDS SUMMARY | 2025-07-01 11:24 | XMS_ITS | Clinical Summary ---
Author Organization [facility] Address [address] [place] [address] Care Team Providers Care Paraffiner Name Role Phone Uzma Lewis Primary Care [...] age to complete this topic Care Teams Paraffiner Relationship Specialty Start Date End Date Uzma Lewis Anali [facility] [place] [address] PCP - General Internal Medicine 09/06/19
--- OUTSIDE RECORDS SUMMARY | 2025-07-01 11:24 | XMS_ITS | Clinical Summary ---
Author Organization [facility] Address [address] [place] [address] Care Team Providers Care Flyer Builder Name Role Phone León Borjas Primary Care Provider [phone] Source Comments PLEASE NOTE, if this patient [...] 2020 Fecal DNA 2020 Flexible Sigmoidoscopy 2020 [id number]-69 (2023- season) 2024 03/19/2023, 01/16/2022, 12/26/2021 Alcohol and Drug Screen 11/07/2024 Depression Annual Screen 11/07/2024 Imm-Influenza (#1) 2025 10/20/2022, 1 12/22/2019, 09/26/2019, Additional history exists Imm-DTaP/Tdap/Td (3 - Td or Tdap) 09/26/2029 019, 04/21/2017 Insurance AETNA [facility] Care Teams Flyer Builder Relationship Specialty Start Date End Date León Borjas PA [address] [place] [address] PCP - General Internal Medicine 06/23/18
--- OUTSIDE RECORDS SUMMARY | 2025-07-01 11:24 | XMS_ITS | Clinical Summary ---
Author Organization 175 [facility] Address 175 [place] [address] Phone Care Team Providers Care Avionics Systems Integration Specialist Name Role Phone Eleanor Barrera MD Primary [...] Continue PT He has established care with [facility] pain management and reportedly completed an MRI on May 06 and has a follow-up on May 23. He will continue care with [facility] possibly for interventional management He is requesting a copy of his MRI L spine done in 2022 and a disc to take to [facility] pain management. Copy of results provided. Advised [...] Team Description 05/23/2025 10:30 AM EDT Treatment [facility] 175 [facility] [address] [place] [phone] John Arredondo, SCHOOL CURRICULUM DEVELOPER Chronic right-sided low back pain with right-sided sciatica (Primary Dx) 05/21/2025 10:30 AM EDT Treatment [facility] 175 [facility] [address] [place] [phone] John Arredondo, SCHOOL CURRICULUM DEVELOPER Chronic right-sided low back pain with right-sided sciatica (Primary Dx) 05/17/2025 9:45 AM EDT Office Visit [address] [phone] Eleanor Barrera MD Osteoarthritis of cervical spine with myelopathy (Primary Dx); Osteoarthritis of lumbar spine with myelopathy; Lumbar radiculopathy; Anxiety and depression; Dyslipidemia; Primary hypertension; Prediabetes; Need for hepatitis C screening test; Colon cancer screening; Need for vaccination against Streptococcus pneumoniae; Anomalous coronary artery origin; Abnormal findings on diagnostic imaging of heart and coronary circulation 04/30/2025 10:00 AM EDT Treatment [address] [phone] Nate Son, PT Chronic right-sided low back pain with right-sided sciatica (Primary Dx) 04/25/2025 11:00 AM EDT Treatment [address] [phone] John Arredondo SCHOOL CURRICULUM DEVELOPER Chronic right-sided low back pain with right-sided sciatica (Primary Dx) 04/23/2025 12:30 PM EDT Treatment [address] [phone] Tomasz Castillo PTA Chronic right-sided low back pain with right-sided sciatica (Primary Dx) 04/18/2025 10:30 AM EDT Office Visit Orthopedic Surgery [facility] [address] [phone] Cornelius Gonzales DPM Controlled type 2 diabetes with neuropathy (CMS/HCC V24, CMS/HCC V28) (Primary Dx); Arthritis of both feet; Pain in toes of both feet; Tinea pedis of both feet 04/15/2025 12:30 PM EDT Treatment [address] [phone] Nate Son, PT Chronic right-sided low back pain with right-sided sciatica (Primary Dx) 04/09/2025 8:30 AM EDT Treatment [facility] [address] [phone] Alfredo Myrick PTA Chronic right-sided low back pain with right-sided sciatica (Primary Dx) 04/04/2025 1:30 PM EDT Evaluation [address] [phone] Nate Son, PT Chronic neck [...] SURGERY; COMMENT: rotator cuff x2, second in [place] Medical History Medical History Date Comments HTN [...] AM EDT Office Visit [facility] - [place] [address] [phone] Cornelius Gonzales DPM [address] [address] 08/13/2025 12:00 PM EDT Appointment [facility] Endoscopy [address] [place] [phone] Zeeshan Montano DO 175 [address] [place] [address] 08/15/2025 10:00 AM EDT Office Visit Adult Medicine [facility] [address] [place] [address] Denice Anna PA [address] [place] [address] Health Maintenance Due Date Last Done Comments [...] LAB CHEMISTRY METHOD 05/17/2025 4:26 PM EDT [facility] Microalb, Ur 11.9 0.0 - 29.0 mg/L LAB CHEMISTRY METHOD 05/17/2025 4:26 PM EDT [facility] Microalb/Creat Ratio 9 <30 mg/g creat LAB CHEMISTRY METHOD 05/17/2025 4:26 PM EDT [facility] Urine Urine specimen obtained by clean catch procedure / Unknown Non-blood Collection / Unknown 05/17/2025 12:19 PM EDT 05/17/2025 12:19 PM EDT Eleanor Barrera MD LAB URINE ORDERA BLES Final Result Performing Organization Address City/[facility]/ZIP Co de Phone Number [facility] [address] [place] [address], * Hepatitis C antibody (05/17/2025 11:06 AM EDT) [facility] Hepatitis C Antibody Negative Negative LAB CHEMISTRY METHOD 05/17/2025 3:14 PM EDT [facility] Blood Venous blood specimen / Unknown Venipuncture / Unknown 05/17/2025 11:06 AM EDT 05/17/2025 11:06 AM EDT Eleanor Barrera MD LAB BLOOD ORDERA BLES Final Result [facility] [address] [place] [address], [place] [phone] * Hemoglobin A1c (05/17/2025 11:06 AM EDT) [facility] Hemoglobin A1C 5.6 <6.5 % LAB CHEMISTRY METHOD 05/17/2025 9:25 PM EDT [facility] Mean Bld Glu Estim. 114 mg/dL LAB CHEMISTRY METHOD 05/17/2025 9:25 PM EDT [facility] Blood Venous blood specimen / Unknown Venipuncture / Unknown 05/17/2025 11:06 AM EDT 05/17/2025 11:06 AM EDT Eleanor Barrera MD LAB BLOOD ORDERA BLES Final Result [facility] [address] [place] [address], [place] [phone] * (ABNORMAL) Lipid panel with reflex to direct LDL (02/07/2025 2:20 PM EDT) Cholesterol 177 0 - 200 mg/dL LAB CHEMISTRY METHOD 02/07/2025 5:03 PM EDT [facility] Triglycerides 181(H) 0 - 150 mg/dL LAB CHEMISTRY METHOD [facility]/07[facility] HDL 52 >=40 mg/dL LAB CHEMISTRY METHOD 02/07/2025 5:03 PM EDT [facility] LDL Calculated 89 0 - 100 mg/dL LAB CHEMISTRY METHOD 02/07/2025 5:03 PM [facility] VLDL Cholesterol Dusty 36.2 mg/dL LAB CHEMISTRY METHOD 02/07/2025 5:03 PM EDT [facility] Non HDL Chol. (LDL+VLDL) 125 <145 mg/dL LAB CHEMISTRY METHOD 02/07[facility]2025 [facility] Chol/HDL Ratio 3.4 0.0 - 4.4 LAB CHEMISTRY METHOD 02/07/2025 5:03 PM [facility] Blood Venous blood specimen / Unknown Venipuncture / Unknown 02/07/2025 2:20 PM EDT 02/07/2025 2:20 PM EDT us Denice DOWELL LAB BLOOD ORDERABLES Final Re sult [facility] [address] [place] [address], [place] [phone] * Comprehensive metabolic panel (02/07/2025 2:20 PM EDT) Sodium 140 133 - 145 mmol/L LAB CHEMISTRY METHOD 02/07/2025 5:03 PM [facility] Potassium 4.0 3.5 - 5.5 mmol/L LAB CHEMISTRY METHOD 02/07/2025 5:03 PM [facility] Chloride 107 96 - 110 mmol/L LAB CHEMISTRY METHOD 02/07/2025 5:03 PM [facility] CO2 27 21 - 32 mmol/L LAB CHEMISTRY METHOD 02/07/2025 5:03 PM [facility] Anion Gap 6 3 - 11 LAB CHEMISTRY METHOD 02/07/2025 5:03 PM [facility] Glucose 86 70 - 100 mg/dL LAB CHEMISTRY METHOD 02/07/2025 5:03 PM [facility] BUN 17 5 - 25 mg/dL LAB CHEMISTRY METHOD 02/07/2025 5:03 PM [facility] Creatinine 1.04 0.70 - 1.30 mg/dL LAB CHEMISTRY METHOD 02/07/2025 5:03 PM [facility] eGFR 88 >=60 mL/min/1. 73m2 LAB CHEMISTRY METHOD 02/07/2025 5:03 PM [facility] Comment:Calculation based on the Chronic Kidney Disease Epidemiology Collaboration (CKD-EPI) equation refit without adjustment for race. BUN/Creatinine Ratio 16.3 LAB CHEMISTRY METHOD 02/07/2025 5:03 PM [facility] Calcium 9.1 8.5 - 10.5 mg/dL LAB CHEMISTRY METHOD 02/07/2025 5:03 PM EDT [facility] AST (SGOT) 17 10 - 42 unit/L LAB CHEMISTRY METHOD 02/07/2025 5:03 PM EDT [facility] ALT (SGPT) 26 10 - 60 unit/L LAB CHEMISTRY METHOD 02/07/2025 5:03 PM EDT [facility] Alkaline Phosphatase 83 42 - 121 unit/L LAB CHEMISTRY METHOD 02/07/2025 5:03 PM EDT [facility] Total Protein 6.7 6.0 - 8.0 g/dL LAB CHEMISTRY METHOD 02/07/2025 5:03 PM EDT [facility] Albumin 3.7 3.2 - 5.0 g/dL LAB CHEMISTRY METHOD 02/07/2025 5:03 PM EDT [facility] Total Bilirubin 0.4 0.0 - 1.4 mg/dL LAB CHEMISTRY METHOD 02/07/2025 5:03 PM EDT [facility] Blood Venous blood specimen / Unknown Venipuncture / Unknown 02/07/2025 2:20 PM EDT 02/07/2025 2:20 PM EDT Denice DOWELL LAB BLOOD ORDERABLES Final Re sult [facility] [address] [place] [address], from Last 3 Months or Most Recently Relevant to Health Maintenance Insurance [employer] MEDICARE ADVANTAGE MEDICAID - [place] Care Teams Avionics Systems Integration Specialist Relationship Specialty Start Date End Date Eleanor Barrera MD [address] [place] [phone] PCP - General 10/26/22
== END 2025-06-28 10:18 | disposition home or self-care (01) ==
LOC: HO.HOSX 10:17
PROVIDERS: Visit Provider Physician Assistant
DX: M25.311 Other instability, right shoulder (principal); M25.511 Pain in right shoulder
CPT/HCPCS: 73030; 99202

== ENCOUNTER 2025-06-28 13:30 | Outpatient (AMB) | payer MEDICARE, MEDICAID, SELFPAY ==
--- OUTSIDE RECORDS SUMMARY | 2025-06-28 13:32 | XMS_ITS | Clinical Summary ---
Author Organization [facility] Address [address] [place] [address] Phone Care Team Providers Care Delivery Assistant Name Role Phone Eleanor Barrera MD Primary Care Pr ovider Allergies No known active allergies Medications ammonium lactate (LAC-HYDRIN) 12 % lotion Apply to soles of feet daily. At night wear socks to bed 4 Active cholecalciferol (VITAMIN D-3) 25 mcg (1,000 unit) capsule Take by mouth. Active cloNIDine (CATAPRES) 0.1 mg tablet Take 0.1 mg by mouth 2 times daily. Active escitalopram (LEXAPRO) 10 mg tablet Take 10 mg by mouth daily. Active fluticasone propionate (FLONASE) 50 mcg/actuation nasal spray 2 Sprays by Each Nare route daily. 3 Active loratadine (CLARITIN) 10 mg tablet Take 1 Tablet by mouth daily. 3 Active meloxicam (MOBIC) 15 mg tablet Take 1 Tablet by mouth daily. 3 Active ketoconazole (NIZORAL) 2 % cream Apply topically 1 (one) time each day. 60 g 2 5 Active amLODIPine (NORVASC) 5 mg tablet Take 1 tablet (5 mg total) by mouth 1 (one) time each day. 90 tablet 1 5 Active atorvastatin (LIPITOR) 20 mg tablet Take 1 tablet (20 mg total) by mouth at bedtime. 90 tablet 1 5 Active metoprolol succinate (TOPROL-XL) 50 mg 24 hr tablet Take 1 tablet (50 mg total) by mouth 1 (one) time each day. 90 tablet 1 5 Active aspirin 81 mg EC tablet Take 1 tablet (81 mg total) by mouth 1 (one) time each day. 90 tablet 1 5 Active pregabalin (LYRICA) 75 mg capsuleIndications :Osteoarthritis of cervical spine with myelopathy,Osteoar thritis of lumbar spine with myelopathy,Lumbar radiculopathy Take 1 capsule (75 mg total) by mouth 2 (two) times a day. Max Daily Amount: 150 mg 180 each 5 08/15/20 25 Active cyclobenzaprine (FLEXERIL) 10 mg tabletIndications: Osteoarthritis of cervical spine with myelopathy,Osteoar thritis of lumbar spine with myelopathy,Lumbar radiculopathy Take 1 tablet (10 mg total) by mouth at bedtime as needed for muscle spasms. 30 tablet 1 5 07/16/20 25 Active Active Problems Problem Noted Date Diagnosed Date [...] Continue PT He has [place] care [place] [facility] [place] and reportedly completed an MRI on May 06 and has a follow-up on May 23. He will continue care with [facility] possibly for interventional management He is requesting a copy of his MRI L spine done in 2022 and a disc to take to [facility] [place]. Copy of [...] Encounters Date Type Department Care Team Description 05/23/2025 10:30 AM EDT Treatment [facility] 175 [facility] [address] [place] [phone] John Arredondo, DISTRIBUTION CENTER ASSOCIATE Chronic right-sided low back pain with right-sided sciatica (Primary Dx) 05/21/2025 10:30 AM EDT Treatment [facility] 175 [facility] [address] [place] [phone] John Arredondo, DISTRIBUTION CENTER ASSOCIATE Chronic right-sided low back pain with right-sided sciatica (Primary Dx) 05/17/2025 9:45 AM EDT Office Visit [address] [phone] Eleanor Barrera MD Osteoarthritis of cervical spine with myelopathy (Primary Dx); Osteoarthritis of lumbar spine with myelopathy; Lumbar radiculopathy; Anxiety and depression; Dyslipidemia; Primary hypertension; Prediabetes; Need for hepatitis C screening test; Colon cancer screening; Need for vaccination against Streptococcus pneumoniae; Anomalous coronary artery origin; Abnormal findings on diagnostic imaging of heart and coronary circulation 04/30/2025 10:00 AM EDT Treatment [address] [phone] Nate Son, PT Chronic right-sided low back pain with right-sided sciatica (Primary Dx) 04/25/2025 11:00 AM EDT Treatment [address] [phone] John Arredondo DISTRIBUTION CENTER ASSOCIATE Chronic right-sided low back pain with right-sided sciatica (Primary Dx) 04/23/2025 12:30 PM EDT Treatment [address] [phone] Tomasz Castillo PTA Chronic right-sided low back pain with right-sided sciatica (Primary Dx) 04/18/2025 10:30 AM EDT Office Visit Orthopedic Surgery [facility] [address] [phone] Cornelius Gonzales DPM Controlled type 2 diabetes with neuropathy (CMS/HCC V24, CMS/HCC V28) (Primary Dx); Arthritis of both feet; Pain in toes of both feet; Tinea pedis of both feet 04/15/2025 12:30 PM EDT Treatment [address] [phone] Nate Son, PT Chronic right-sided low back pain with right-sided sciatica (Primary Dx) 04/09/2025 8:30 AM EDT Treatment [facility] [address] [phone] Alfredo Myrick PTA Chronic right-sided low back pain with right-sided sciatica (Primary Dx) 04/04/2025 1:30 PM EDT Evaluation [address] [phone] Nate Son, PT Chronic neck [...] SURGERY; COMMENT: rotator cuff x2, second in [place] Medical History Medical History Date Comments HTN (hypertension) 09/04/2018 DX:HTN (hyper tension) Anxiety 09/04/2018 DX:Anxiety Panic attacks 09/04/2018 DX:Panic attacks Chronic neck pain 09/04/2018 DX:Chronic nec k pain Chronic shoulder pain 09/04/2018 DX:Chronic shoulder pain Hearing loss 09/04/2018 DX:Hearing loss Dental infection DX:Dental infec tion Sepsis (CMS/HCC V24, CMS/HCC V28) DX:Sepsis (HCC) Class 2 obesity DX:Class 2 obesi ty [...] Care Team (Late st Contact Info) Description 07/22/2025 10:15 AM EDT Office Visit Orthopedic Surgery - [place] [address] [phone] Cornelius Gonzales DPM [address] [address] 08/13/2025 12:00 PM EDT Appointment [facility] Endoscopy [address] [place] [phone] Zeeshan Montano DO 175 [address] [place] [address] 08/15/2025 10:00 AM EDT Office Visit Adult Medicine [facility] [address] [place] [phone] Denice Anna PA [address] [place] [address] Health Maintenance Due Date Last Done Comments [...] ORDERA BLES Final Result Performing Organization Address City/[facility]/ZIP Co de Phone Number [facility] [address] [place] [address], * Hepatitis C antibody (05/17/2025 11:06 AM EDT) [facility] Hepatitis C Antibody Negative Negative LAB CHEMISTRY METHOD 05/17/2025 3:14 PM EDT [facility] Blood Venous blood specimen / Unknown Venipuncture / Unknown 05/17/2025 11:06 AM EDT 05/17/2025 11:06 AM EDT Eleanor Barrera MD LAB BLOOD ORDERA BLES Final Result [facility] [address] [place] [address], [place] [phone] * Hemoglobin A1c (05/17/2025 11:06 AM EDT) [facility] Hemoglobin A1C 5.6 <6.5 % LAB CHEMISTRY METHOD 05/17/2025 9:25 PM EDT [facility] Mean Bld Glu Estim. 114 mg/dL LAB CHEMISTRY METHOD 05/17/2025 9:25 PM EDT [facility] Blood Venous blood specimen / Unknown Venipuncture / Unknown 05/17/2025 11:06 AM EDT 05/17/2025 11:06 AM EDT Eleanor Barrera MD LAB BLOOD ORDERA BLES Final Result [facility] [address] [place] [address], [place] [phone] * (ABNORMAL) Lipid panel with reflex to direct LDL (02/07/2025 2:20 PM EDT) Cholesterol 177 0 - 200 mg/dL LAB CHEMISTRY METHOD 02/07/2025 5:03 PM EDT [facility] Triglycerides 181(H) 0 - 150 mg/dL LAB CHEMISTRY METHOD [facility]/07[facility]2025 [facility] HDL 52 >=40 mg/dL LAB CHEMISTRY METHOD 02/07/2025 5:03 PM EDT [facility] LDL Calculated 89 0 - 100 mg/dL LAB CHEMISTRY METHOD 02/07/2025 5:03 PM [facility] VLDL Cholesterol Dusty 36.2 mg/dL LAB CHEMISTRY METHOD 02/07/2025 5:03 PM EDT [facility] Non HDL Chol. (LDL+VLDL) 125 <145 mg/dL LAB CHEMISTRY METHOD 02/07[facility]2025 5:[facility] Chol/HDL Ratio 3.4 0.0 - 4.4 LAB CHEMISTRY METHOD 02/07/2025 5:03 PM [facility] Blood Venous blood specimen / Unknown Venipuncture / Unknown 02/07/2025 2:20 PM EDT 02/07/2025 2:20 PM EDT us Denice DOWELL LAB BLOOD ORDERABLES Final Re sult [facility] [address] [place] [address], [place] [phone] * Comprehensive metabolic panel (02/07/2025 2:20 PM EDT) Sodium 140 133 - 145 mmol/L LAB CHEMISTRY METHOD 02/07/2025 5:03 PM [facility] Potassium 4.0 3.5 - 5.5 mmol/L LAB CHEMISTRY METHOD 02/07/2025 5:03 PM [facility] Chloride 107 96 - 110 mmol/L LAB CHEMISTRY METHOD 02/07/2025 5:03 PM [facility] CO2 27 21 - 32 mmol/L LAB CHEMISTRY METHOD 02/07/2025 5:03 PM [facility] Anion Gap 6 3 - 11 LAB CHEMISTRY METHOD 02/07/2025 5:03 PM [facility] Glucose 86 70 - 100 mg/dL LAB CHEMISTRY METHOD 02/07/2025 5:03 PM [facility] BUN 17 5 - 25 mg/dL LAB CHEMISTRY METHOD 02/07/2025 5:03 PM [facility] Creatinine 1.04 0.70 - 1.30 mg/dL LAB CHEMISTRY METHOD 02/07/2025 5:03 PM [facility] eGFR 88 >=60 mL/min/1. 73m2 LAB CHEMISTRY METHOD 02/07/2025 5:03 PM [facility] Comment:Calculation based on the Chronic Kidney Disease Epidemiology Collaboration (CKD-EPI) equation refit without adjustment for race. BUN/Creatinine Ratio 16.3 LAB CHEMISTRY METHOD 02/07/2025 5:03 PM [facility] Calcium 9.1 8.5 - 10.5 mg/dL LAB CHEMISTRY METHOD 02/07/2025 5:03 PM EDT [facility] AST (SGOT) 17 10 - 42 unit/L LAB CHEMISTRY METHOD 02/07/2025 5:03 PM EDT [facility] ALT (SGPT) 26 10 - 60 unit/L LAB CHEMISTRY METHOD 02/07/2025 5:03 PM EDT [facility] Alkaline Phosphatase 83 42 - 121 unit/L LAB CHEMISTRY METHOD 02/07/2025 5:03 PM EDT [facility] Total Protein 6.7 6.0 - 8.0 g/dL LAB CHEMISTRY METHOD 02/07/2025 5:03 PM EDT [facility] Albumin 3.7 3.2 - 5.0 g/dL LAB CHEMISTRY METHOD 02/07/2025 5:03 PM EDT [facility] Total Bilirubin 0.4 0.0 - 1.4 mg/dL LAB CHEMISTRY METHOD 02/07/2025 5:03 PM EDT [facility] Blood Venous blood specimen / Unknown Venipuncture / Unknown 02/07/2025 2:20 PM EDT 02/07/2025 2:20 PM EDT Denice DOWELL LAB BLOOD ORDERABLES Final Re sult [facility] [address] [place] [address], from Last 3 Months or Most Recently Relevant to Health Maintenance Insurance [employer] MEDICARE [employer]VANTAGE MEDICAID - [place] Care Teams Delivery Assistant Relationship Specialty Start Date End Date Eleanor Barrera MD [address] [place] [id number] PCP - General 10/26/22
--- OUTSIDE RECORDS SUMMARY | 2025-06-28 13:32 | XMS_ITS | Clinical Summary ---
Author Organization [facility] Address [address] [place] [address] Care Team Providers Care Pr Internship Name Role Phone León Borjas Primary Care Provider [phone] Source Comments PLEASE NOTE, if this patient [...] 2020 Fecal DNA 2020 Flexible Sigmoidoscopy 2020 [id number] (2023- season) 2024 03/19/2023, 01/16/2022, 12/26/2021 Alcohol and Drug Screen 11/07/2024 Depression Annual Screen 11/07/2024 Imm-Influenza (#1) 2025 10/20/2022, 1 12/22/2019, 09/26/2019, Additional history exists Imm-DTaP/Tdap/Td (3 - Td or Tdap) 09/26/2029 019, 04/21/2017 Insurance AETNA [facility] Care Teams Pr Internship Relationship Specialty Start Date End Date León Borjas PA [address] [place] [address] PCP - General Internal Medicine 06/23/18
--- OUTSIDE RECORDS SUMMARY | 2025-06-28 13:32 | XMS_ITS | Clinical Summary ---
Author Organization [facility] Address [address] [place] [address] Care Team Providers Care Director Radio News Name Role Phone Uzma Lewis Primary Care [...] age to complete this topic Care Teams Director Radio News Relationship Specialty Start Date End Date Uzma Lewis Anali [facility] [place] [address] PCP - General Internal Medicine 09/06/19
--- NOTE | 2025-06-28 13:54 | MHC.OFFVIS ---
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 Patient referred by Dr. Guerra for chronic right shoulder pain, status post [facility] 2013/2015. 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 Deleon is a 49-year-old male who presents to the office today for evaluation of right shoulder pain. He reports that he has had 2 surgeries done in the past. It is unclear which procedure that he had. He reports that his 1st procedure was done at [facility] in 2013. He reports that there was some complication with this surgery and therefore he was referred to [place] for a 2nd surgery in 2015. Again, it is unclear what surgery he had. Additionally, he has issues with his spine in which he has numbness tingling in pain on the right upper extremity and right lower extremity. [facility] Medical History (Updated 06/28/25 @ 14:51 by Angeli Friend PA-C) Chronic low back pain Lumbar radiculitis Social History (Updated 06/28/25 @ 14:25 by Osiel De La Rosa) Alcohol intake: never Patient Tobacco Use Status: Never used Tobacco Current occupational status: disabled Current occupation: right hand dominant Review of Systems Const All systems reviewed & are unremarkable except as noted in HPI and below Physical Exam Vital Signs: BMI result Body Mass Index 35.5 Const General: cooperative, healthy appearing and no acute distress Resp Effort & Inspection: normal respiratory effort and able to speak in complete sentences Extrem Other: Right shoulder: Normal to inspection. No ecchymosis, erythema, or edema. 9 degrees forward flexion abduction. Positive cross-body reach. 3/5 strength with empty can. Negative drop arm. NVI. Psych Appearance: grossly normal Mental Status: mental status grossly normal Attitude: cooperative Assessment & Plan Assessment & Plan (1) Rotator cuff insufficiency of right shoulder: Code(s): M25.311 - Other instability, right shoulder Category: Medical Plan Mr. Deleon is a 49-year-old male who presents to the office today for evaluation of right shoulder pain. He reports that he has had 2 surgeries done in the past. It is unclear which procedure that he had. He reports that his 1st procedure was done at [facility] in 2013. He reports that there was some complication with this surgery and therefore he was referred to [place] for a 2nd surgery in 2016. Again, it is unclear what surgery he had. Additionally, he has issues with his spine in which he has numbness tingling in pain on the right upper extremity and right lower extremity. Unfortunately, while in the office today I am not fully understanding this patient's past history in regards to treatment that has been performed in the right shoulder. We discussed possibility of cortisone injection however the patient states that his surgeon in [place] told him that this was no longer available to him but is unsure as to the reasoning. I have asked the patient to obtain all surgical history as well as office visits from [facility] and the hospital that treated him in [place] for our review. Once this patient has obtained all information I will review the chart and determine if this is something that our practice is able to treat or if the patient should be referred back to [place]. X-rays of the right shoulder which were obtained while in the office today and were reviewed by me, Angeli Friend PA-C, revealed prior rotator cuff repair hardware. Degenerative changes related to chronic rotator cuff tear. Orders: Orders XR shoulder RT min 2V Today M25.519 - Pain in unspecified shoulder Coding Level of Care Code New Pt Level 3 (04065) Diagnoses Rotator cuff insufficiency of right shoulder M25.311
[2025-06-28 13:59] VITALS: BMI 35.5
== END 2025-06-28 14:28 | disposition home or self-care (01) ==
LOC: HO.HOS 13:30
PROVIDERS: PCP Family Medicine; Visit Provider Physician Assistant
DX: M25.311 Other instability, right shoulder (principal)
CPT/HCPCS: 99203

== ENCOUNTER → 2025-06-28 13:31 | Outpatient (BNV) | payer MEDICARE, MEDICAID, SELFPAY | PROVIDERS: Visit Provider Radiology Diagnostic Radiology | DX: M75.121 Complete rotator cuff tear or rupture of right shoulder, not specified as traumatic (principal) | CPT/HCPCS: 73030 ==

== ENCOUNTER 2025-07-30 06:11 | Outpatient (REF) | payer MEDICARE, MEDICAID, SELFPAY ==
--- NOTE | ~2025-07-30 | FL_ITS ---
EXAMINATION: FL GUIDANCE ONLY HISTORY: M54.16 - Radiculopathy, lumbar region COMPARISON: None available. TECHNIQUE: Fluoroscopy time: 1 minute, 3 seconds. Cumulative Dose: 18.8 mGy. DAP: 501.91 uGym2 Images: 1. FINDINGS: A fluoroscopic spot film of the lumbar spine demonstrates a needle in the region of an L5-S1 facet joint. FL/FL guidance in treatment room IMPRESSION: Fluoroscopy during procedure. Please see procedure report for additional information. Electronically signed by: Nate Manuel MD 08/01/2025 07:22 AM EDT
--- OUTSIDE RECORDS SUMMARY | 2025-07-30 06:14 | XMS_ITS | Encounter Summary ---
Author Organization [facility] Address [address] [place] [address] Care Team Providers Care New Patient Escort Name Role Phone Eleanor Barrera MD Primary Care Pr ovider Reason for Visit * Reason Onset Date Comments Medication Clearance 07/12/2025 Encounter Details Date Type Department Care Team (Late st Contact Info) Description 07/12/2025 Telephone Adult Medicine [address] [phone] Eleanor Barrera MD [address] [place] [address] Social History Tobacco Use Types Packs/Day Years Used Date Smoking Tobacco: Never Smokeless Tobacco: Never Alcohol Use Standard Drinks/Week Comments Yes 0 (1 standard drink = 0.6 oz pur e alcohol) Sex and Gender Information Value Date Recorded Sex Assigned at Not on file Legal Sex Male 10:12 AM EST Gender Identity Not on file Sexual Orientation Not on file documented as of this encounter Progress Notes * Jacque Snell MA - 07/25/2025 11:45 AM EDT Pt is all set. * DELMER Armstrong - 07/19/2025 12:11 PM EDT (Just received message today, original message from 07/12) What procedure is patient having? I have not seen patient since February so I am not sure what this isreferring to. Typically discontinuation would be at discretion of provider performing procedure/surgery * Guerita Samson - 07/12/2025 3:37 PM EDT Kia is calling in as she needs clearance to see if they can hold the patients asprin for 7 days before the procedure. Patient is scheduled for the procedure for 07/30/25 so if they can get that kenrick they would appreciate it. documented in this encounter Plan of Treatment Upcoming Encounters Date Type Department Care Team (Late st Contact Info) Description 08/13/2025 12:00 PM EDT Appointment [facility] Endoscopy [address] [place] [phone] Zeeshan Montano DO 175 [facility] [address] [place] [address] 08/15/2025 10:00 AM EDT Office Visit Adult [address] [phone] Denice Anna PA [address] [place] [address] 10/21/2025 9:45 AM EST Office Visit Orthopedic Surgery - [place] 250 175 [facility] 250 [place] [phone] Cornelius Gonzales DPM 175 [facility] [address] [place] [address] 11/18/2025 8:40 AM EST Office Visit [facility] 154 300 [facility] 154 [place] [phone] Marito Macario NP [address] [place] [address] Dr Gonzalez [address] [place] [address] documented as of this encounter Goals Goal Patient Goal Type Associated Problems Recent Progress Patient-Stated? Author PT LTGs General No Nate Son, PT Note: Pt will increase lumbar AROM to WNL Pt will report Lumbar ERP no greater than 3/10 with lumbar AROM testing Pt will be independent with Lumbar HEP Pt will complete cervical evaluation documented as of this encounter Visit Diagnoses Not on filedocumented in this encounter Care Teams New Patient Escort Relationship Specialty Start Date End Date Eleanor Barrera MD [address] [place] [phone] PCP - General 10/26/22 documented as of this encounter
--- OUTSIDE RECORDS SUMMARY | 2025-07-30 06:14 | XMS_ITS | Clinical Summary ---
Author Organization 175 [facility] Address [address] [place] [address] Phone Care Team Providers Care Log Washer Name Role Phone Eleanor Barrera MD Primary [...] for muscle spasms. 30 tablet 1 5 Active Active Problems Problem Noted Date Diagnosed [...] Continue PT He has established care with [facility] pain management and reportedly completed an MRI on May 06 and has a follow-up on May 23. He will continue care with [facility] possibly for interventional management He is requesting a copy of his MRI L spine done in 2022 and a disc to take to [facility] pain management. Copy of results provided. Advised [...] Encounters Date Type Department Care Team Description 07/22/2025 10:15 AM EDT Office Visit Orthopedic Surgery - [place] [address] [phone] Cornelius Gonzales DPM Controlled type 2 diabetes with neuropathy (CMS/HCC V24, CMS/HCC V28) (Primary Dx); Arthritis of both feet; Pain in toes of both feet; Tinea pedis of both feet 07/12/2025 Telephone Adult [address] [phone] Eleanor Barrera MD 05/23/2025 10:30 AM EDT Treatment [address] [phone] John Arredondo, CORPORATE SECURITY OFFICER Chronic right-sided low back pain with right-sided sciatica (Primary Dx) 05/21/2025 10:30 AM EDT Treatment [address] [phone] John Arredondo, CORPORATE SECURITY OFFICER Chronic right-sided low back pain with right-sided sciatica (Primary Dx) 05/17/2025 9:45 AM EDT Office Visit Adult Medicine [address] [phone] Eleanor Barrera MD Osteoarthritis of cervical spine with myelopathy (Primary Dx); Osteoarthritis of lumbar spine with myelopathy; Lumbar radiculopathy; Anxiety and depression; Dyslipidemia; Primary hypertension; Prediabetes; Need for hepatitis C screening test; Colon cancer screening; Need for vaccination against Streptococcus pneumoniae; Anomalous coronary artery origin; Abnormal findings on diagnostic imaging of heart and coronary circulation 04/30/2025 10:00 AM EDT Treatment [address] [phone] Nate Son, PT Chronic right-sided low back pain with right-sided sciatica (Primary Dx) from Last 3 Months Immunizations Name Administration [...] SURGERY; COMMENT: rotator cuff x2, second in [place] Medical History Medical History Date Comments HTN [...] Info) Description 08/13/2025 12:00 PM EDT Appointment [facility] Endoscopy [address] [place] [phone] Zeeshan Montano DO 175 [facility] 200 [place] [address] 08/15/2025 10:00 AM EDT Office Visit Adult Medicine [address] [place] [address] Denice Anna PA [address] [place] [address] 10/21/2025 9:45 AM EST Office Visit Orthopedic Surgery - [place] 250 175 [facility] 250 [place] [phone] Cornelius Gonzales DPM 175 [facility] 250 [place] [address] 11/18/2025 8:40 AM EST Office Visit [facility] - [facility] 154 300 [facility] 154 [place] [phone] Marito Macario NP 2 [facility] Dr Gonzalez [address] [place] [address] Health Maintenance Due Date Last Done Comments Hepatitis B Vaccines (1 of 3 - 19+ 3-dose series) 1994 Colorectal Cancer Screening: Colonoscopy 10/16/2022 HIV Screening 10/16/2022 Medicare Annual Wellness Visit 10/16/2022 Social Influencers of Health Screening 10/16/2022 Depression Screening 11/07/2024 COVID-19 Vaccine ( season) 2025 03/19/2023, 01/16/2022, 12/26/2021 Influenza Vaccine (#1) 2025 , 10/20/2022, 10/21/2020, Additional history exists Zoster Vaccines (1 of 2) 2025 Diabetes: Blood Sugar Control Test (HGBA1C) 11/17/2025 [...] Cholesterol Screening (Lipid Panel) 02/07/2030 02/07/2025, 10/04/2023 RSV Immunization Adult Patients (1 - 1-dose 75+ series) 2050 Hepatitis C Screening Completed 05/17/2025 Pneumococcal Vaccine: 50+ Years Completed 05/17/2025 HIB Vaccines Aged Out No [...] LAB CHEMISTRY METHOD 05/17/2025 4:26 PM EDT [facility] Microalb, Ur 11.9 0.0 - 29.0 mg/L LAB CHEMISTRY METHOD 05/17/2025 4:26 PM EDT [facility] Microalb/Creat Ratio 9 <30 mg/g creat LAB CHEMISTRY METHOD 05/17/2025 4:26 PM EDT [facility] Urine Urine specimen obtained by clean catch procedure / Unknown Non-blood Collection / Unknown 05/17/2025 12:19 PM EDT 05/17/2025 12:19 PM EDT Eleanor Barrera MD LAB URINE ORDERA BLES Final Result Performing Organization Address City/[facility]/ZIP Co de Phone Number [facility] [address] [place] [address], [place] [phone] * Hepatitis C antibody (05/17/2025 11:06 AM EDT) [facility] Hepatitis C Antibody Negative Negative LAB CHEMISTRY METHOD 05/17/2025 3:14 PM EDT [facility] Blood Venous blood specimen / Unknown Venipuncture / Unknown 05/17/2025 11:06 AM EDT 05/17/2025 11:06 AM EDT Eleanor Barrera MD LAB BLOOD ORDERA BLES Final Result Performing Organization Address [facility]/ZIP Co de Phone Number [facility] [address] [place] [address], [place] [phone] * Hemoglobin A1c (05/17/2025 11:06 AM EDT) [facility] Hemoglobin A1C 5.6 <6.5 % LAB CHEMISTRY METHOD 05/17/2025 9:25 PM EDT [facility] Mean Bld Glu Estim. 114 mg/dL LAB CHEMISTRY METHOD 05/17/2025 9:25 PM EDT [facility] Blood Venous blood specimen / Unknown Venipuncture / Unknown 05/17/2025 11:06 AM EDT 05/17/2025 11:06 AM EDT Eleanor Barrera MD LAB BLOOD ORDERA BLES Final Result Performing Organization Address City/[facility]/ZIP Co de Phone Number [facility] [address] [place] [address], [place] [phone] * (ABNORMAL) Lipid panel with reflex to direct LDL (02/07/2025 2:20 PM EDT) [facility] Cholesterol 177 0 - 200 mg/dL LAB CHEMISTRY METHOD 02/07/2025 5:03 PM EDT [facility] Triglycerides 181(H) 0 - 150 mg/dL LAB CHEMISTRY METHOD 02/07/2025 5:03 PM [facility] HDL 52 >=40 mg/dL LAB CHEMISTRY METHOD 02/07/2025 5:03 PM EDT [facility] LDL Calculated 89 0 - 100 mg/dL LAB CHEMISTRY METHOD 02/07/2025 5:03 PM EDT [facility] VLDL Cholesterol Dusty 36.2 mg/dL LAB CHEMISTRY METHOD 02/07/2025 5:03 PM [facility] Non HDL Chol. (LDL+VLDL) 125 <145 mg/dL LAB CHEMISTRY METHOD 02/07/2025 5:03 PM [facility] Chol/HDL Ratio 3.4 0.0 - 4.4 LAB CHEMISTRY METHOD 02/07/2025 5:03 PM T [facility] Blood Venous blood specimen / Unknown Venipuncture / Unknown 02/07/2025 2:20 PM EDT 02/07/2025 2:20 PM EDT Denice DOWELL LAB BLOOD ORDERABLES Final Re sult [facility] [address] [place] [address], * Comprehensive metabolic panel (02/07/2025 2:20 PM EDT) Sodium 140 133 - 145 mmol/L LAB CHEMISTRY METHOD 02/07/2025 5:03 PM [facility] Potassium 4.0 3.5 - 5.5 mmol/L LAB CHEMISTRY METHOD 02/07/2025 5:03 PM [facility] Chloride 107 96 - 110 mmol/L LAB CHEMISTRY METHOD 02/07/2025 5:03 PM EDT [facility] CO2 27 21 - 32 mmol/L LAB CHEMISTRY METHOD 02/07/2025 5:03 PM [facility] Anion Gap 6 3 - 11 LAB CHEMISTRY METHOD 02/07/2025 5:03 PM [facility] Glucose 86 70 - 100 mg/dL LAB CHEMISTRY METHOD 02/07/2025 5:03 PM [facility] BUN 17 5 - 25 mg/dL LAB CHEMISTRY METHOD 02/07/2025 5:03 PM [facility] Creatinine 1.04 0.70 - 1.30 mg/dL LAB CHEMISTRY METHOD 02/07/2025 5:03 PM [facility] eGFR 88 >=60 mL/min/1. 73m2 LAB CHEMISTRY METHOD 02/07/2025 5:03 PM [facility] Comment:Calculation based on the Chronic Kidney Disease Epidemiology Collaboration (CKD-EPI) equation refit without adjustment for race. BUN/Creatinine Ratio 16.3 LAB CHEMISTRY METHOD 02/07/2025 5:03 PM [facility] Calcium 9.1 8.5 - 10.5 mg/dL LAB CHEMISTRY METHOD 02/07/2025 5:03 PM [facility] AST (SGOT) 17 10 - 42 unit/L LAB CHEMISTRY METHOD 02/07/2025 5:03 PM [facility] ALT (SGPT) 26 10 - 60 unit/L LAB CHEMISTRY METHOD 02/07/2025 5:03 PM [facility] Alkaline Phosphatase 83 42 - 121 unit/L LAB CHEMISTRY METHOD 02/07/2025 5:03 PM [facility] Total Protein 6.7 6.0 - 8.0 g/dL LAB CHEMISTRY METHOD 02/07/2025 5:03 PM [facility] Albumin 3.7 3.2 - 5.0 g/dL LAB CHEMISTRY METHOD 02/07/2025 5:03 PM EDT [facility] Total Bilirubin 0.4 0.0 - 1.4 mg/dL LAB CHEMISTRY METHOD 02/07/2025 5:03 PM EDT [facility] Blood Venous blood specimen / Unknown Venipuncture / Unknown 02/07/2025 2:20 PM EDT 02/07/2025 2:20 PM EDT us Denice DOWELL LAB BLOOD ORDERABLES Final Re sult [facility] [address] [place] [address], [place] [phone] from Last 3 Months or Most Recently Relevant to Health Maintenance Insurance [employer] MEDICARE ADVANTAGE MEDICAID - [place] Care Teams Log Washer Relationship Specialty Start Date End Date Eleanor Barrera MD [address] [place] [phone] PCP - General 10/26/22
--- OUTSIDE RECORDS SUMMARY | 2025-07-30 06:14 | XMS_ITS | Clinical Summary ---
Author Organization [facility] Address [address] [place] [address] Care Team Providers Care Dam Operator Name Role Phone Uzma Lewis Primary Care [...] 2020 Influenza Vaccine (#1) 2025 9, 09/04/2018 Shingrix-Zoster Vaccine (1 o f 2) 2025 Pneumococcal Vaccine Aged Out No long er eligible based on patient's age to complete this topic RSV Ped < 20 months Aged Out No longe r eligible based on patient's age to complete this topic Care Teams Dam Operator Relationship Specialty Start Date End Date Uzma Lewis [facility] [place] [address] PCP - General Internal Medicine 09/06/19
== END 2025-07-30 06:12 | disposition home or self-care (01) ==
LOC: CF 06:11
PROVIDERS: Visit Provider Internal Medicine
DX: M54.16 Radiculopathy, lumbar region (principal)
CPT/HCPCS: 62321; J2003; J3301; Q9967

== ENCOUNTER 2025-07-30 09:45 | Outpatient (AMB) | payer MEDICARE, MEDICAID, SELFPAY ==
--- NOTE | 2025-07-30 09:50 | A.OFFVIS_ITS ---
Vital Signs 07/30/25 09:51 Weight 220 lb BP 140/81 H Blood Pressure Location Lt brachial Position Sitting Respiration 18 Pulse 75 Pulse Source Pulse Oximeter Pulse Oximetry (%) 100 Oxygen Delivery Method Room Air Intake Visit Reasons: L5-S1 Interlaminar TOMASA Smooth Stucco Resurfacer Required: Yes Smooth Stucco Resurfacer Name: hospital interp Allergies No Known Allergies Allergy (Verified 05/23/25 09:21) [facility] Medical History (Updated 06/28/25 @ 14:51 by Angeli Friend PA-C) Chronic low back pain Lumbar radiculitis Social History (Updated 06/28/25 @ 14:25 by Osiel De La Rosa) Alcohol intake: never Patient Tobacco Use Status: Never used Tobacco Current occupational status: disabled Current occupation: right hand dominant Physical Exam Vital Signs: Last Vital Signs Pulse 75 07/30/25 09:51 Resp 18 07/30/25 09:51 BP 140/81 H 07/30/25 09:51 Pulse Ox 100 07/30/25 09:51 Oxygen Delivery Method Room Air 07/30/25 09:51 Assessment & Plan Assessment & Plan (1) Lumbar radiculitis: Code(s): M54.16 - Radiculopathy, lumbar region Category: Medical Plan Attempts at interlaminar epidural steroid injection. Informed consent was explained to the patient. All questions were explained and? answered.? The patient was taken inside the operating room where he was positioned prone on the operating table. Time-out was performed delineating correct site, side, the nature of the procedure, patient's allergy, . All operating room staff was participating in OR time-out procedure. ? ? The lower back was prepped with ChloraPrep and draped with sterile utility towels.? C-arm was brought over the operating field and sq picture of L5 and S1 vertebra were demonstrated on the screen. The left upper portion of the S1 vertebra lamina as close to spinous process of S1 as possible was chosen as the initial tongue get of needle advancement. Projection of the target to the skin was injected with small amount of lidocaine 1% raising skin wheal. After that 20 gauge Touhy needle was inserted through the skin wheal and started to advanced to were the interlaminar epidural space under intermittent anterior posterior and lateral views. Patient appeared to be very uncomfortable with needle advancement. He was not able to stand still on the table while needles were advanced and remained restless even when advancement of the needle we will be stopped. He complained on cramping sensation in bilateral lower extremities while on the operating table. He complain on severe discomfort with needle advancement in the midline. The assumption was made that maybe with transforaminal epidural steroid injection patient would be more comfortable and we would be able to advanced the needle from oblique direction without much discomfort. Using lidocaine 1% skin wheal was raised in the projection of the superior articular process of S1 on the left. I attempted to start needle a dvancement of the 22 gauge 5 in needle in typical oblique view to were the superior articular process of S1 however even though I advanced the needle only no more than 1-1/2 cm from the surface of the skin the patient started to complain on severe discomfort. The character impersonator was invited to the room and we asked the patient if he wants to continue the procedure. Patient stated that he can not tolerate procedure longer in his [place]. Needle was removed sterile Band-Aids were applied. The patient will be seen in the office and we will discuss the plan of treatment further. Orders: Orders FL guidance in treatment room Today M54.16 - Radiculopathy, lumbar region Coding Level of Care Code Procedure Only Diagnoses Lumbar radiculitis M54.16
[2025-07-30 09:51] VITALS: BP 140/81; PULSE 75; RESP 18; O2SAT 100
--- OUTSIDE RECORDS SUMMARY | 2025-07-30 11:40 | XMS_ITS | Clinical Summary ---
Author Organization [facility] Address [address] [place] [address] Care Team Providers Care Plumbing Designer Name Role Phone León Borjas Primary Care Provider [phone] Source Comments PLEASE NOTE, if this patient [...] 2020 Fecal DNA 2020 Flexible Sigmoidoscopy 2020 Alcohol and Drug Screen 11/07/2024 Depression Annual Screen 11/07/2024 [id number] ( season) 2025 03/19/2023, 01/16/2022, 12/26/2021 Imm-Influenza (#1) 2025 10/20/2022, 1 12/22/2019, 09/26/2019, Additional history exists Imm-Pneumococcal 50+ (1 of 1 - PCV) 2025 Imm-Zoster, Recombinant (1 of 2) 2025 Imm-DTaP/Tdap/Td (3 - Td or Tdap) 09/26/2029 019, 04/21/2017 Insurance [employer] Care Teams Plumbing Designer Relationship Specialty Start Date End Date León Borjas PA [address] [place] [address] PCP - General Internal Medicine 06/23/18
== END 2025-07-30 10:23 | disposition home or self-care (01) ==
LOC: HO.PMCPRC 09:45
PROVIDERS: PCP Physician Assistant; Visit Provider Anesthesiology
DX: M54.16 Radiculopathy, lumbar region (principal)
CPT/HCPCS: 62321